=== PATIENT | male | born 1990 | race Caucasian/White ===

== ENCOUNTER 2017-07-09 09:13 | Emergency (ER) | payer OTHER ==
[2017-07-09] MEDS ORDERED: ONDANSETRON 4 MG TAB.RAPDIS PO ONE (09:29)
[2017-07-09] MEDS ORDERED: DICYCLOMINE HCL 10 MG CAPSULE PO ONE (09:30)
--- NOTE | 2017-07-09 09:32 | ER Document Report ---
ED Medical Screen (RME) - General Chief Complaint: Abdominal Pain Stated Complaint: ABDOMINAL PAIN Time Seen by Provider: 07/09/17 09:24 Notes: 26-year-old male here with complaints of "abdominal pain all over" that started yesterday morning. He states that the pain is worse with movement and during car ride going over bumps in the road. Pain is improved with getting into a position. Pain has been constant. He has had some nausea and dry heaving as well as diarrhea. His was seen yesterday for abdominal pain and vomiting and "they saw some swelling in her intestines". He reports that since last night, he has not been able to pass any gas or have any bowel movements. He has no prior history of obstruction or abdominal surgeries. EXAM: Minimally tender left lower quadrant No peritoneal signs TRAVEL OUTSIDE OF THE [place] IN LAST 30 DAYS: No - Related Data Allergies/Adverse Reactions: No Known Allergies Allergy (Verified 07/09/17 09:14) Past Medical History - Social History Frequency of alcohol use: Occasional Drug Abuse: None Renal/ Medical History: Denies: Hx Peritoneal Dialysis Past Surgical History: Reports: Hx Cardiac Surgery - ICD, Hx Oral Surgery - [place] Teeth, Hx Orthopedic Surgery - L Shoulder Physical Exam - Vital signs Vitals: Pulse Resp BP Pulse Ox 63 16 100/78 100 07/09/17 09:20 07/09/17 09:20 07/09/17 09:20 07/09/17 09:20 Course - Vital Signs Vital signs: Temp Pulse Resp BP Pulse Ox 63 16 100/78 100 07/09/17 09:20 07/09/17 09:20 07/09/17 09:20 07/09/17 09:20
[2017-07-09 10:16] LABS: ABSOLUTE LYMPHOCYTES (AUTO) 0.6 10^3/uL (0.5-4.7); ABSOLUTE MONOCYTES (AUTO) 0.8 10^3/uL (0.1-1.4); ABSOLUTE NEUT (AUTO) 8.6 10^3/uL (1.7-8.2); BASOPHILS % (AUTO) 0.1 % (0-2); EOSINOPHILS % (AUTO) 0.4 % (0-6); HEMATOCRIT 48.1 % (37.9-51.0); HEMOGLOBIN 16.5 g/dL (13.5-17.0); LYMPHOCYTES % (AUTO) 5.7 % (13-45); MEAN CORPUSCULAR HEMOGLOBIN 28.3 pg (27.0-33.4); MEAN CORPUSCULAR HGB CONC 34.4 g/dL (32.0-36.0); MEAN CORPUSCULAR VOLUME 82 fl (80-97); MONOCYTES % (AUTO) 8.3 % (3-13); PLATELET COUNT 155 10^3/uL (150-450); RED BLOOD COUNT 5.84 10^6/uL (4.35-5.55); RED CELL DISTRIBUTION WIDTH 13.5 % (11.5-14.0); SEGMENTED NEUTROPHILS % (AUTO) 85.5 % (42-78); TOTAL CELLS COUNTED % (AUTO) 100 %
--- NOTE | 2017-07-09 10:19 | RADIOLOGY REPORT (SQ) ---
EXAM DESCRIPTION: ACUTE ABDOMEN SERIES COMPLETED DATE/TIME: 07/09/2017 9:49 am REASON FOR STUDY: abdominal pain; eval obstructive pattern COMPARISON: None. NUMBER OF VIEWS: Three views. TECHNIQUE: Frontal chest, supine abdomen and upright/decubitus abdomen radiographic images acquired. LIMITATIONS: None. FINDINGS: CHEST: Lungs clear of infiltrates. FREE AIR: None. No abnormal gas collections. BOWEL GAS PATTERN: Nonobstructive pattern. No dilated loops or air fluid levels. CALCIFICATIONS: No suspicious calcifications. HARDWARE: None in the abdomen. Cardiac defibrillator. SOFT TISSUES: No gross mass or suggestion of organomegaly. BONES: No acute fracture. No worrisome bone lesions. OTHER: No other significant finding. IMPRESSION: NO RADIOGRAPHIC EVIDENCE FOR ACUTE ABDOMINAL DISEASE. TECHNICAL DOCUMENTATION: JOB ID: [id number] [employer]- All Rights Reserved
[2017-07-09 10:39] LABS: ALANINE AMINOTRANSFERASE 46 U/L (21-72); ALBUMIN 4.7 g/dL (3.5-5.0); ALKALINE PHOSPHATASE 45 U/L (38-126); ANION GAP 9 (5-19); ASPARTATE AMINO TRANSFERASE 31 U/L (17-59); BILIRUBIN,DIRECT 0.2 mg/dL (0.0-0.4); BILIRUBIN,TOTAL 0.9 mg/dL (0.2-1.3); BLOOD UREA NITROGEN 21 mg/dL (7-20); CALCIUM 9.9 mg/dL (8.4-10.2); CARBON DIOXIDE 28 mmol/L (22-30); CHLORIDE 105 mmol/L (98-107); GLUCOSE 99 mg/dL (75-110); LIPASE 96.6 U/L (23-300); POTASSIUM 4.3 mmol/L (3.6-5.0); SODIUM 142.1 mmol/L (137-145); TOTAL PROTEIN 7.6 g/dL (6.3-8.2)
--- NOTE | 2017-07-09 12:05 | RADIOLOGY REPORT (SQ) ---
EXAM DESCRIPTION: CT ABD/PELVIS NO ORAL OR IV COMPLETED DATE/TIME: 07/09/2017 11:36 am REASON FOR STUDY: elevated neutrophil count and diffuse abd pain COMPARISON: None. TECHNIQUE: CT scan of the abdomen and pelvis performed without intravenous or oral contrast. Images reviewed with lung, soft tissue, and bone windows. Reconstructed coronal and sagittal MPR images revi ewed. All images stored on PACS. All CT scanners at this facility use dose modulation, iterative reconstruction, and/or weight based d osing when appropriate to reduce radiation dose to as low as reasonably achievable (ALARA). [facility]: Dose Right [facility]: CareDose [facility]: Dose Right [facility]: Teradose 4D [facility]: Amorcyte RADIATION DOSE: CT Rad equipment meets quality standard of care and radiation dose reduction techniq ues were employed. CTDIvol: 6.9 mGy. DLP: 399 mGy-cm.mGy. LIMITATIONS: None. FINDINGS: LOWER CHEST: No significant findings. No nodules or infiltrates. NON-CONTRASTED LIVER, SPLEEN, ADRENALS: Evaluation limited by lack of IV contrast. No identified sign ificant masses. PANCREAS: No masses. No peripancreatic inflammatory changes. GALLBLADDER: No identified stones by CT criteria. No inflammatory changes to suggest cholecystitis. RIGHT KIDNEY AND URETER: No suspicious masses. Assessment limited by lack of IV contrast. No signif icant calcifications. No hydronephrosis or hydroureter. LEFT KIDNEY AND URETER: No suspicious masses. Assessment limited by lack of IV contrast. No signifi cant calcifications. No hydronephrosis or hydroureter. AORTA AND RETROPERITONEUM: No aneurysm. No retroperitoneal masses or adenopathy. Distal pacing leads lower chest. BOWEL AND PERITONEAL CAVITY: No obvious masses or inflammatory changes. No free fluid. No obstructio n. Marked distention of the stomach by fluid, debris and food. APPENDIX: Normal. PELVIS, BLADDER, AND ABDOMINAL WALL:No abnormal masses. No free fluid. Bladder normal. BONES: No significant findings. OTHER: No other significant finding. IMPRESSION: Marked distention of the stomach secondary to severe gastro paresis. Bezoar cannot be e xcluded. Remainder GI tract is unremarkable. No other significant abnormality. COMMENT: Quality ID # [id number]: Final reports with documentation of one or more dose reduction techniques (e.g., Automated exposure control, adjustment of the mA and/or kV according to patient size, use of iterative reconstruction technique) TECHNICAL DOCUMENTATION: JOB ID: [id number] [employer]- All Rights Reserved
[2017-07-09] MEDS ORDERED: KETOROLAC TROMETHAMINE INJ/PF 30 MG/1 ML SDV IV ONE (12:38)
[2017-07-09] MEDS ORDERED: METOCLOPRAMIDE HCL INJ/PF 10 MG/2 ML SDV IV ONE (12:38)
[2017-07-09] MEDS ORDERED: DIPHENHYDRAMINE HCL 50 MG/ML VIAL IV ONE (12:38)
[2017-07-09] MEDS ORDERED: NORMAL SALINE 1000 ML 1,000 ML IV ONE (12:40)
--- NOTE | 2017-07-09 12:52 | ER Document Report ---
ED General - General Mode of Arrival: Ambulatory Information source: Patient TRAVEL OUTSIDE OF THE [place] IN LAST 30 DAYS: No <MARNI JASSO - Last Filed: 07/09/17 18:41> <FRANCOIS JOEL - Last Filed: 07/09/17 18:49> - General Chief Complaint: Abdominal Pain Stated Complaint: ABDOMINAL PAIN Time Seen by Provider: 07/09/17 09:24 Notes: Patient is a 26 year old male with a history of a thoracic aortic aneurysm and defibrillator presents to the emergency department complaining of abdominal pain onset a few days ago. Patient states the pain is constant and describes it as sharp and cramping. Patient states the pain is exacerbated with movement and driving over bumps in the road. Patient states the pain is relieved when supine and laying on his side bilaterally. Patients associated symptoms include nausea, gagging, diarrhea, decreased appetite, decreased bowel movements and a low grade fever. Patient states he had similar symptoms years ago when he had gastroenteritis. (MARNI JASSO) - Related Data Allergies/Adverse Reactions: No Known Allergies Allergy (Verified 07/09/17 09:14) Past Medical History - General Information source: Patient - Social History Smoking Status: Never Smoker Frequency of alcohol use: Occasional Drug Abuse: None Patient has suicidal ideation: No Patient has homicidal ideation: No Past Surgical History: Reports: Hx Cardiac Surgery - ICD, Hx Oral Surgery - [place] Teeth, Hx Orthopedic Surgery - L Shoulder <MARNI JASSO - Last Filed: 07/09/17 18:41> - Social History Family History: Other - Sister with congenital heart disease as well. <FRANCOIS JOEL - Last Filed: 07/09/17 18:49> Review of Systems - Review of Systems Constitutional: No symptoms reported EENT: No symptoms reported Cardiovascular: No symptoms reported Respiratory: No symptoms reported Gastrointestinal: See HPI, Abdominal pain, Diarrhea, Nausea, Vomiting - gagging , Poor appetite Genitourinary: No symptoms reported Male Genitourinary: No symptoms reported Musculoskeletal: No symptoms reported Skin: No symptoms reported Hematologic/Lymphatic: No symptoms reported Neurological/Psychological: No symptoms reported -: Yes All other systems reviewed and negative <MARNI JASSO - Last Filed: 07/09/17 18:41> Physical Exam <MARNI JASSO - Last Filed: 07/09/17 18:41> <FRANCOIS JOEL - Last Filed: 07/09/17 18:49> - Vital signs Vitals: Pulse Resp BP Pulse Ox 63 16 100/78 100 07/09/17 09:20 07/09/17 09:20 07/09/17 09:20 07/09/17 09:20 - Notes Notes: GENERAL: Alert, interacts well. No acute distress. Appears uncomfortable. HEAD: Normocephalic, atraumatic. EYES: Pupils equal, round, and reactive to light. Extraocular movements intact. ENT: Oral mucosa moist, tongue midline. NECK: Full range of motion. Supple. Trachea midline. LUNGS: Clear to auscultation bilaterally, no wheezes, rales, or rhonchi. No respiratory distress. HEART: 1/6 systolic murmur. No gallops or rubs. ABDOMEN: Soft, Voluntary guarding with epigastric and LUQ tenderness. Non- distended. Bowel sounds present in all 4 quadrants. EXTREMITIES: Moves all 4 extremities spontaneously. No edema, radial and dorsalis pedis pulses 2/4 bilaterally. NEUROLOGICAL: Alert and oriented x3. Normal speech. PSYCH: Normal affect, normal mood. SKIN: Warm, dry, normal turgor. No rashes or lesions noted. (MARNI JASSO) Course - Laboratory Result Diagrams: 07/09/17 10:00 07/09/17 10:00 <MARNI JASSO - Last Filed: 07/09/17 18:41> - Laboratory Result Diagrams: 07/09/17 10:00 07/09/17 10:00 <FRANCOIS JOEL - Last Filed: 07/09/17 18:49> - Re-evaluation Re-evalutation: 07/09/17 14:34 Patient is feeling better, has had no further vomiting, has received his Reglan and has been able to drink water without difficulty. He is kept down for approximately 15 minutes now. If patient continues to keep his fluids down without difficulty patient will be discharged to home with Reglan and Benadryl. 07/09/17 14:37 CBC grossly unremarkable, CMP shows slightly elevated BUN 21 otherwise unremarkable, acute abdominal series does not show any signs of small bowel obstruction at this time. CT scan of the abdomen and pelvis shows marked distention of the stomach secondary to severe gastroparesis, bezoar cannot be excluded. Patient was treated with Reglan and is feeling better. Patient denies any intake that would be consistent with bezoar formation, denies pica, eating hair , nails or other foreign nonfood substances. (FRANCOIS JOEL) - Vital Signs Vital signs: Temp Pulse Resp BP Pulse Ox 98.4 F 60 18 104/63 99 07/09/17 15:02 07/09/17 15:02 07/09/17 15:02 07/09/17 15:02 07/09/17 15:02 - Laboratory Laboratory results interpreted by me: 07/09/17 07/09/17 10:00 10:00 RBC 5.84 H Seg Neutrophils % 85.5 H Lymphocytes % 5.7 L Absolute Neutrophils 8.6 H BUN 21 H Discharge <MARNI JASSO - Last Filed: 07/09/17 18:41> <FRANCOIS JOEL - Last Filed: 07/09/17 18:49> - Discharge Clinical Impression: Gastroparesis Condition: Stable Disposition: HOME, SELF-CARE Additional Instructions: Today your pain appeared to be coming from gastroparesis. Gastroparesis is where you get partial paralysis of your stomach muscles and your stomach is not emptying properly. This can come from many things. You will need to see a translator as an outpatient to further assess why you have this. Today we treated with Reglan and Benadryl. You can take Reglan on a daily basis to help with the symptoms. You may either take it before every meal or just as needed when you notice the vomiting starts up again. Benadryl can help to prevent the anxiety and other side effects that come with Reglan. Prescriptions: Metoclopramide HCl [Reglan 10 mg Tablet] 10 mg PO ACHS #60 tablet Referrals: AGUSTO BRIONES MD [ACTIVE STAFF] - Follow up in 1 week Scribe Attestation: 07/09/17 18:49 I personally performed the services described in the documentation, reviewed and edited the documentation which was dictated to the scribe in my presence, and it accurately records my words and actions. (FRANCOIS JOEL) Scribe Documentation - Scribe Written by Shannae:: Dong Arevalo, 07/09/2017 15:55 acting as scribe for :: Charisma <MARNI JASSO - Last Filed: 07/09/17 18:41>
[2017-07-09 15:03] VITALS: BP 104/63
== END 2017-07-09 15:04 | disposition home or self-care (01) ==
LOC: ER 09:13
DX: K31.84 Gastroparesis (principal); R19.7 Diarrhea, unspecified; R50.9 Fever, unspecified; Z87.19 Personal history of other diseases of the digestive system; Z95.810 Presence of automatic (implantable) cardiac defibrillator
CPT/HCPCS: 99284; 96361; 96374; 96375; 36415; 83690; 85025; 80053; 74022; 74176; J3490; J1200; S0119; J1885; J2765; J7030